=== PATIENT | female | born 1975 ===

== ENCOUNTER 2017-10-15 09:45 | Day surgery (SDC) | payer MEDICARE, OTHER ==
[2017-10-13 14:51] VITALS: BMI 31.8
--- NOTE | 2017-10-15 10:08 | CP.PCM.PN ---
Subjective - Date & Time of Evaluation Date of Evaluation: 10/15/17 Time of Evaluation: 10:05 - Subjective Subjective: 42 year old female seen in [facility] preoperatively for evaluation before undergoing an Branden bunionectomy of her left first metatarsophalangeal joint. Patient is AAO x 3, resting in bed at time of visit. Patient states that she is very nervous. She says that her pain right now is roughly 4/10 but increases to 8/10 when walking. Patient denies any further pedal complaints at this time. Denies any recent N/V/F/C/CP/SOB/D/posterior calf pain when squeezed. States that she has had a tubaligation in the past and vomited afterwards as a result of the anesthesia.. Denies any current known allergies or medications. Objective - Constitutional Appears: Well, Non-toxic, No Acute Distress - Extremities Exam Additional comments: LLE focused exam: Vasc: DP/PT pulses palpable 2/4 b/l. Skin temperature warm to warm from proximal to distal. CFT < 3 seconds to all digits b/l. No edema noted b/l Neuro: Epicritic and protective sensation grossly intact b/l Derm: No open lesions, wounds, maceration, xerosis, abnormal pigmentation or abnormal growths noted b/l. Nails well manicured and normotrophic 1-10 b/l MSK: Hallux abductovalgus deformity noted to patient's left metatarsohalangeal joint. No POP to site but pain with active and passive ROM. Muscle strength 5/5 to all major muscle groups b/l. Otherwise, no musculoskeletal abnormalities noted at this time. - Neurological Exam Neurological Exam: Alert, Awake, Oriented x3 - Psychiatric Exam Psychiatric exam: Normal Affect, Normal Mood Assessment and Plan - Assessment and Plan (Free Text) Assessment: 42 year old female seen in [facility] preoperatively for evaluation before undergoing an Branden bunionectomy of her left first metatarsophalangeal joint Plan: Pt was seen and examined in [facility] Pt NPO status was confirmed All pre-op testing and clearance in chart Pt has exhausted all conservative treatment at this time and is opting for surgical intervention Pt was explained procedure and post-operative course All pt's questions were answered to satisfaction No guarantees were made Pt understands all risks, benefits and complications of procedure Pt will follow-up with Dr. Caputo within 1 week of surgery
--- NOTE | 2017-10-15 10:13 | CP.SDSHP ---
Same Day Surgery H & P - History Proposed Procedure: Branden bunionectomy, left foot Pre-Op Diagnosis: Hallux abductovalgus deformity of left foot - Previous Medical/Surgical History Pain: 4.Moderate Pain Previous Surgical History: Tubal ligation - Allergies Allergies: Allergies No Known Allergies Allergy (Verified 10/13/17 14:51) - Current Medications Current Medications: Denies - Physical Exam Mental Status: Alert & Oriented x3 - {Optional Preform as Required} Integument: WNL Ortho: Other (Painful Hallux abductovalgus deformity, left foot) - Impression Pt. Evaluated Today:Candidate for Anesthesia & Procedure: Yes - Date & Time Date: 10/15/17 Time: 10:13 Short Stay Discharge - Short Stay Discharge Admitting Diagnosis/Reason for Visit: M21.612 Disposition: HOME/ ROUTINE Referrals: Lg Chirinos MD [Primary Care Provider] -
[2017-10-15] MEDS ORDERED: Sodium Chloride 0.9% 1,000 ML IV SCH (10:15)
[2017-10-15] MEDS ORDERED: Lidocaine 1% Inj (20ml) IJ ONE ×2 (10:15→12:03)
[2017-10-15] MEDS ORDERED: ceFAZolin 1 GM in Sodium Chloride 0.9% 100 ML IVPB ONE (10:15)
[2017-10-15] MEDS ORDERED: Bupivacaine 0.5% Inj(30mL) IJ ONE (10:15)
[2017-10-15] MEDS ORDERED: Lidocaine 1% Inj (20ml) ONE (11:16)
[2017-10-15] MEDS ORDERED: Bupivacaine 0.5% Inj(30mL) ONE (11:17)
[2017-10-15] MEDS ORDERED: Propofol 10 mg/ml Inj (20 ML) ONE ×3 (11:22→12:41)
[2017-10-15] MEDS ORDERED: Lactated Ringer's 1,000 ML IV ONE (11:45)
[2017-10-15] MEDS ORDERED: Midazolam 2 MG/2 ML VIAL ONE (11:47)
[2017-10-15] MEDS ORDERED: Bupivacaine 0.5% 50 ML IJ ONE ×2 (12:03)
[2017-10-15] MEDS ORDERED: Dexamethasone 4 mg/1 ml ONE (12:19)
[2017-10-15] MEDS ORDERED: Dexamethasone 4 mg/1 ml IM ONE (13:13)
[2017-10-15] MEDS ORDERED: HYDROmorphone 0.5 mg/0.5 ml ISec IVP PRN (13:26)
[2017-10-15] MEDS ORDERED: Lactated Ringer's 1,000 ML IV SCH (13:30)
--- NOTE | 2017-10-15 13:31 | PCM.SURG1 ---
Surgeon's Initial Post Op Note - Surgeon's Notes Surgeon: Dr. Caputo DPM Manager Of Security: Dr. Matt DPM PGY-2 Type of Anesthesia: IV Sedation Anesthesia Administered By: Dr. Gifford Pre-Operative Diagnosis: left foot hallux abductovalgus Operative Findings: see dication. m: synthes 2.0 x 14mm screws x2, 2-0 vicryl, 3-0 vicryl, 4-0 monocryl Post-Operative Diagnosis: same Operation Performed: left foot surgical intervention of painful hallux valgus Specimen/Specimens Removed: none Estimated Blood Loss: EBL {In ML}: 1 Blood Products Given: N/A Drains Used: No Drains Post-Op Condition: Good Date of Surgery/Procedure: 10/15/17 Time of Surgery/Procedure: 13:31
[2017-10-15] MEDS ORDERED: Oxycodone/Acetaminophen 5/325 mg Tab PO PRN ×2 (13:32)
--- NOTE | 2017-10-15 15:18 | RAD ---
PROCEDURE: Left Foot Radiographs. HISTORY: s/p left foot surgery COMPARISON: None. FINDINGS: BONES: Interval 1st metatarsal osteotomy with 2 trans fixating screws noted medial partial resection inferred bunionectomy changes also noted there is less hallux valgus like orientations suggested. . Inferior and posterior calcaneal spurring First metatarsal head osseous hypertrophy with 1st metatarsal-phalangeal joint arthrosis/joint-space narrowing Bipartite medial sesamoid bone JOINTS: As above SOFT TISSUES: Soft tissue swelling compatible with recent postop changes. Bandaging in place. OTHER FINDINGS: None. IMPRESSION: Postop changes. No unexpected pathology noted
[2017-10-15 15:58] VITALS: RESP 18
[2017-10-15 17:44] VITALS: O2SAT 100
[2017-10-15 19:08] VITALS: BP 110/70; PULSE 88; TEMP 98.6
--- NOTE | 2017-10-16 11:27 | CARD ---
APPROVED REPORT EKG Measurement Heart [id number] <Conclusion> Normal sinus rhythm Normal ECG
--- NOTE | 2017-10-16 21:41 | OP ---
PROCEDURE DATE: 10/15/2017 PREOPERATIVE DIAGNOSES: 1. Left foot hallux abductovalgus. 2. Left foot metatarsus primus adductus. POSTOPERATIVE DIAGNOSES: 1. Left foot hallux abductovalgus. 2. Left foot metatarsus primus adductus. PROCEDURE PERFORMED: 1. Left foot hallux abductovalgus repair to include release of the adductor hallucis tendon, tibial sesamoid ligament, resection of the hypertrophied dorsal medial eminence and medial capsulorrhaphy. 2. Repair of metatarsus primus adductus with first metatarsal osteotomy with screw fixation. SURGEON: Sanford Caputo DPM PIN MACHINE OPERATOR: Christiana Matt DPM, PGY-2. ANESTHESIOLOGIST: Devan Gifford MD TYPE OF ANESTHESIA: MAC IV sedation with local injection. INDICATION: The patient is a 42-year-old female with the above-mentioned diagnosis. The patient is being treated by Dr. Caputo in clinic as an outpatient basis where she has exhausted multiple forms of conservative treatment. The patient seeks surgical intervention at this time. All risks, benefits, and possible complications postprocedure have been explained to the patient at length. The patient verbalizes understanding and wished to proceed. All questions were answered. No guarantees were given or implied. The consent was signed and n.p.o. status was confirmed prior to bringing the patient to the operating room. OPERATIVE PROCEDURE: The patient was brought into the operating room and placed on the operative room table in the supine position. A well-padded pneumatic ankle tourniquet was applied to the patient's left ankle in supramalleolar position. Once IV sedation was achieved, a local injection consisting of 15 mL of 1:1 mixture of 1% lidocaine plain and 0.5% Marcaine plain given in a local block fashion to the patient's left foot. Once local anesthesia was achieved, the left foot was then prepped and draped in the usual sterile manner, and pneumatic ankle tourniquet was inflated to 250 mmHg. PROCEDURE 1: Left foot hallux abductovalgus repair to include release of the adductor hallucis tendon, tibial sesamoid ligament, resection of the hypertrophied dorsal medial eminence and medial capsulorrhaphy. Attention was directed to the dorsal aspect of the first metatarsal head on the left where an approximately 6 cm linear longitudinal incision was made medial and parallel to the tendon of the extensor hallucis longus and involving the contour of the deformity. The incision was deepened to the subcutaneous tissue using a combination of sharp and blunt dissection. Care was taken to identify and retract all vital neurovascular structures. All bleeders were cauterized and ligated as necessary. Attention was then directed to the first interspace via the original incision where the tendon of the extensor hallucis brevis was identified and tenotomized. Dissection was continued deep using blunt dissection to the level of the fibular sesamoid, which was freed of its soft tissue attachment proximally, laterally and distally. The conjoint tendon of the adductor hallucis muscle was then identified and transected at its attachment at the base of the proximal phalanx. At this time, the lateral contracture present on the hallux was noted to reduce and the sesamoid apparatus was noted to correct into a more medial position. At this time, an inverted L-type capsulotomy was performed over the dorsal aspect of the first metatarsophalangeal joint. The periosteum and capsular structures were then carefully dissected free of their osseous attachments and resected medially and laterally, thus exposing the head of the first metatarsal into the operative site. Next, utilizing the oscillating bone saw, the dorsal and medial prominences were resected and passed off the operative field. All rough edges were then smoothed down utilizing a bone rasp. PROCEDURE 2: Repair of metatarsus primus adductus with first metatarsal osteotomy with screw fixation of the left foot. At this time, the hip was then actually rotated and the better visualization of the medial aspect of the metatarsal head for osteotomy cut. Attention was then redirected to the medial aspect of the first metatarsal head where a K-wire was driven in the metatarsal head for temporary fixation. Next, a [id number] V-type osteotomy was created in the metaphyseal region of the bone utilizing an oscillating saw. The apex of the osteotomy pointed distally with the arms pointing proximal plantar and proximal dorsal. The dorsal arm was made longest to accommodate for internal fixation. Upon completion of the osteotomy, the capital fragment was then distracted and shifted laterally into a more corrected position and impacted upon the first metatarsal head. At this time, two 0.055 inch K-wires were driven from dorsal to plantar across the osteotomy site to serve a temporary fixation. Following sequential removal of the K-wires involving standard AO principles and technique, two 2.0 x 14 mm deep cortical screws were inserted and they were placed across the osteotomy site with excellent compression noted. The remaining K-wires were removed. Attention was then directed to the remaining medial bone shaft, which was resected utilizing the oscillating saw and passed from the operative field. Correction of the deformity was assessed at this time and noted to be excellent. The surgical site was then irrigated with copious amounts of normal sterile saline. The periosteum and capsular structures were then reapproximated using #2-0 and 3-0 Vicryl. Redundant capsular tissues were resected as necessary. The subcutaneous tissues were then reapproximated and coapted using 4-0 Monocryl. The skin was reapproximated and coapted using 4-0 Monocryl in a subcuticular technique. A postoperative injection consisting of 10 mL of 0.5% Marcaine plain and 8 mg of dexamethasone was given. The left foot was then dressed with Steri-Strips, 4 x 4s, Leonila, and lastly Tensoplast. POSTOPERATIVE CONDITION: The patient tolerated the anesthesia and procedure well with no apparent complications or complaints. The patient was escorted from the operating room to the recovery room with vital signs stable and neurovascular structures intact to the left foot. The patient will follow up with Dr. Caputo in clinic on an outpatient basis. Christiana Matt DPM Sanford Caputo DPM
== END 2017-10-15 19:15 | disposition home or self-care (01) ==
LOC: H.OPSURG 09:45
PROVIDERS: ATTEND Podiatrist
DX: M21.612 Bunion of left foot (principal); J45.909 Unspecified asthma, uncomplicated; M20.12 Hallux valgus (acquired), left foot
CPT/HCPCS: 28122; 28315; 73630; 88304; 88311; 93005; 97161; C1713; G8978; G8979; G8980; J0690; J1100; J2250; J2405; J2704; J2765; J3010; J7030; J7120